=== PATIENT | male | born 1945 | race Caucasian/White ===

== ENCOUNTER 2019-07-29 09:59 | Outpatient (CLI) | payer OTHER, SELFPAY ==
[2019-07-29 10:30] LABS: Basophils # 0.1 10^3/uL (0.0-0.1); Basophils % 0.7 %; Eosinophils # 0.1 10^3/uL (0.0-0.8); Eosinophils % 0.6 %; Hematocrit 47.7 % (42.0-52.0); Hemoglobin 16.1 g/dL (11.7-16.6); Lymphocytes # 10.6 10^3/uL (0.8-4.8); Mean Corpuscular HGB Conc 33.8 g/dL (30.0-36.0); Mean Corpuscular Hemoglobin 30.7 pg (28.0-34.0); Mean Platelet Volume 10.2 fL (7.4-10.4); Monocytes # 0.7 10^3/uL (0.2-0.9); Monocytes % 4.7 %; Neutrophils # 3.4 10^3/uL (1.8-7.7); Neutrophils % 22.8 %; Nucleated Red Blood Cells % 0 %; Platelet Count 229 10^3/cmm (130-400); Red Blood Count 5.24 10^6/uL (4.1-5.3); Red Cell Distribution Width 12.1 % (12.1-15.1)
[2019-07-29 10:59] LABS: Slide Review Slide Review Perform
--- NOTE | 2019-07-29 14:16 | ONC FU_ITS ---
follow up note Patient: Vel Palacios Unit #: [id number]: 1945 Dicatated By: Nara Singh M.D.Date of Visit:Jul 29, 2019 Onc Med Follow-up/Prog Note History of Present Illness: Mr. Vel Palacios , 74-year-old gentleman with long-standing history of leukocytosis/lymphocytosis, on 07/12/2015 he had whole blood flow cytometry which confirmed chronic lymphocytic leukemia. As per patient initially he went to hematology clinic at [facility] in [place] and then he was followed by his PMD in [facility]. And he was told his blood counts has been stable and no treatment needed. And no further workup was offered except observation alone. And his last CBC done on 06/23/2018 showed white blood count 15.5 hemoglobin 16.6 and hematocrit 49.6 platelets 237,000 Denies any peripheral lymphadenopathy denies any night sweats denies any fever chills denies any weight loss Came for follow-up, denies any specific complaints, no fever or chills, no nausea or vomiting, no diarrhea constipation, no abdominal fullness, no peripheral lymphadenopathy, no night sweats, no weight loss. Medications: This patient reports not taking external medications. Allergies: Penicillins Review of Systems: Constitutional - Appetite is good and weight is stable. No fever, chills, hot flashes, or night sweats. Energy level is good, ENMT - No sinus congestion/drainage. No mouth sores. No sore throat or difficulty swallowing, Hematologic/Lymphatic - No abnormal bruising or bleeding, Respiratory - No shortness of breath. No cough. No pleuritic pain or hemoptysis, Cardiovascular - No angina pain. No palpitations, Gastrointestinal - No nausea or vomiting. Positive for heartburn. No diarrhea or constipation. No blood in the stool or black stools, Genitourinary (M) - No dysuria or hematuria. No urinary frequency. No urgency or incontinence, Musculoskeletal - No joint or bone pain, Neurologic - No headache or dizziness. No numbness/paresthesias or other focal neurologic symptoms, Psychiatric - No anxiety or depression. No insomnia. Vital Signs: Performed on Jul 29, 2019 11:51 Height - 74.00 in Weight - 182.6 lbs (LOW) BSA - 2.09 sq.m BMI - 23.44 Temperature - 98.2 F (LOW) Pulse - 65 /min Respiration - 24 /min BP - 138/75 mm(hg) O2 Sat - 94 % (LOW) Pain - 0 Performance Status: 0 - Fully active, able to carry on all predisease activities without restrictions. (ECOG) Physical Examination: ENMT - No oral exudates, ulcers, masses, thrush or mucositis. Oropharynx clear. Tongue normal, Respiratory - Lungs are clear to auscultation without rhonchi or wheezing, Cardiovascular - Regular rate and rhythm of heart, Abdomen - Non-tender, non-distended, hepatosplenomegaly. Good bowel sounds. No guarding or rebound tenderness. No pulsatile masses, Extremities - no edema. Lab/Imaging: Test performed on Jul 29, 2019 10:14 WBC 15.0 10 3/uL RBC 5.24 10^12/L HGB 16.1 g/dL HCT 47.7 % MCV 91.0 fL MCH 30.7 pg MCHC 33.8 g/dL Platelet Count 229 10^9/L RDW 12.1 % MPV 10.2 fL Lymphocytes 10.6 10^9/L Neutrophils 0.1 10 3/uL Monocytes 0.7 10^9/L Eosinophils 0.1 10^9/L Basophils 0.1 10^9/L Neutrophil % 0.6 % Manual Lymphocytes 71.0 % Manual Monocytes 4.7 % Manual Eosinophils 0.6 % Manual Basophils 0.7 % NRBCs 0.0 /100 WBC Impression: Chronic lymphocytic leukemia diagnosed on 07/12/2015 with flow cytometry which showed clonal B-cell detected that coexpress CD5 and surface kappa light chains, partial CD23, dim FMC 7, and are negative for CD10. CD20 expression is moderate to bright. And his baseline white blood cell is around 15,000 with a normal hemoglobin and platelets. Clinical stage 0 Plan: Discussed with patient regarding his labs white blood count 15 hb 16.1 crit 47% platelets 229,000 absolute lymphocyte count 10.6 Clinically, patient is doing well, no B signs symptoms suggestive of disease progression, no peripheral lymphadenopathy, no organomegaly and follow-up CBC shows mild lymphocytosis stable with a normal hemoglobin and platelet counts. We'll continue to monitor and he will return to clinic in 6 months with CBC CMP and LDH Signed By: Nara Singh M.D. <<Signature on File>>
== END 2019-07-29 10:00 | disposition home or self-care (01) ==
LOC: ONCMED 10:04
PROVIDERS: Family Provider Internal Medicine; Visit Provider Internal Medicine Hematology & Oncology
DX: C91.10 Chronic lymphocytic leukemia of B-cell type not having achieved remission (principal)
CPT/HCPCS: 85025; G0463

== ENCOUNTER → 2019-08-13 13:31 | Outpatient (BNVA) | payer OTHER, SELFPAY | PROVIDERS: Family Provider Internal Medicine; Visit Provider Nurse Practitioner | DX: S62.611A Displaced fracture of proximal phalanx of left index finger, initial encounter for closed fracture (principal); S61.432A Puncture wound without foreign body of left hand, initial encounter; W34.00XA Accidental discharge from unspecified firearms or gun, initial encounter | CPT/HCPCS: 73130 ==

== ENCOUNTER 2019-10-09 08:00 | Outpatient (CLI) | payer OTHER, SELFPAY ==
--- NOTE | 2019-10-09 08:45 | USCV_ITS ---
Suzanne Vel Age: 74 Gender: M : 1945 Exam Date: 10/09/2019 08:23 Ordering Phys: Leonard Jain XX Technologist: MARLENE VAUGHN Exam Location: [facility] [place]_ Indication: Rt Carotid Bruit Risk Factors: Previous Vascular Surgery: Right Brachial BP: / Left Brachial BP: / Right Left Velocity (cm/s) Spectral Plaque Velocity (cm/s) Spectral Plaque Syst/Diast Broadening Syst/Diast Broadening 109.90/17.30 Prox CCA 148.80/ 28.70 99.20/ 18.70 Mid CCA 90.40 / 24.30 78.30/ 18.70 Distal CCA 81.60 / 20.90 71.50/ 23.30 Prox ICA 97.00 / 30.90 79.20/ 27.20 Mid ICA 116.90/ 39.70 99.20/ 33.60 Distal ICA 86.00 / 24.30 94.80 ECA 99.20 1.00 ICA/CCA 1.29 Antegrade Vertebral Antegrade 20.80/ 10.70 cm/s 62.10/ 16.30 cm/s Tri Subclavian Tri 201.2 199.7 0 0 FINDINGS Comparison: none available. No significant elevation of systolic or diastolic velocities. Waveforms are normal. Mild atherosclerosis at the bifurcations. Bilateral antegrade vertebral arteries. CONCLUSIONS Bilateral ICA stenosis less than 50%. Mild atherosclerosis. Dr. Roxy Yoon DO (Electronically Signed) Final Date: 09 October 2019 09:17 S
== END 2019-10-09 08:01 | disposition home or self-care (01) ==
PROVIDERS: Family Provider Internal Medicine; PCP Internal Medicine; Visit Provider Internal Medicine
DX: R09.89 Other specified symptoms and signs involving the circulatory and respiratory systems (principal)
CPT/HCPCS: 93880

== ENCOUNTER 2020-01-27 12:02 | Outpatient (CLI) | payer OTHER, SELFPAY ==
[2020-01-27 12:36] LABS: Basophils # 0.1 10^3/uL (0.0-0.1); Basophils % 0.4 %; Eosinophils # 0.1 10^3/uL (0.0-0.8); Eosinophils % 0.6 %; Hematocrit 47.8 % (42.0-52.0); Hemoglobin 15.8 g/dL (11.7-16.6); Lymphocytes # 15.4 10^3/uL (0.8-4.8); Lymphocytes % 75.3 %; Mean Corpuscular HGB Conc 33.1 g/dL (30.0-36.0); Mean Corpuscular Hemoglobin 31.4 pg (28.0-34.0); Mean Platelet Volume 10.4 fL (7.4-10.4); Monocytes # 0.8 10^3/uL (0.2-0.9); Monocytes % 3.8 %; Neutrophils # 4.01 10^3/uL (1.8-7.7); Neutrophils % 19.7 %; Nucleated Red Blood Cells % 0 %; Platelet Count 235 10^3/cmm (130-400); Red Blood Count 5.03 10^6/uL (4.1-5.3); Red Cell Distribution Width 12.7 % (12.1-15.1); White Blood Count 20.5 10^3/uL (4.0-10.0)
[2020-01-27 12:55] LABS: Alanine Aminotransferase 21 U/L (0-41); Albumin Level 4.6 g/dL (3.5-5.2); Alkaline Phosphatase 92 IU/L (40-130); Aspartate Amino Transferase 22 U/L (0-40); Blood Urea Nitrogen 23 mg/dL (8-23); Calcium 9.1 mg/dL (8.5-10.5); Carbon Dioxide 26 mmol/L (22-29); Chloride 107 mmol/L (98-107); Glucose 91 mg/dL (65-115); Osmolality Calculated 288 mOsm/kg (285-295); Sodium 141 mmol/L (136-145); Total Bilirubin 0.7 mg/dL (0.15-1.2); Total Protein 6.6 g/dL (6.6-8.7)
[2020-01-27 13:06] LABS: Anion Gap 12.2 (5-19); Lactate Dehydrogenase 239 U/L (135-225); Potassium 4.2 mmol/L (3.5-5.1)
[2020-01-27 13:16] LABS: Slide Review Slide Review Perform
--- NOTE | 2020-01-27 14:03 | ONC FU_ITS ---
follow up note Patient: Vel Palacios Unit #: [id number]: 1945 Dicatated By: Nara Singh M.D.Date of Visit:Jan 27, 2020 Onc Med Follow-up/Prog Note History of Present Illness: Mr. Vel Palacios , 74-year-old gentleman with long-standing history of leukocytosis/lymphocytosis, on 07/12/2015 he had whole blood flow cytometry which confirmed chronic lymphocytic leukemia. As per patient initially he went to hematology clinic at [facility] in [place] and then he was followed by his PMD in [facility]. And he was told his blood counts has been stable and no treatment needed. And no further workup was offered except observation alone. And his last CBC done on 06/23/2018 showed white blood count 15.5 hemoglobin 16.6 and hematocrit 49.6 platelets 237,000 Denies any peripheral lymphadenopathy denies any night sweats denies any fever chills denies any weight loss Came for follow-up, denies any specific complaints except patient said accidentally he shot himself in his left hand but no serious damage was done. Otherwise denies any night sweats denies any weight loss denies any recurrent fever denies any peripheral lymphadenopathy denies any abdominal fullness. Appetite is good, weight is stable rather gaining. Medications: This patient reports not taking external medications. Allergies: Penicillins Review of Systems: Constitutional - Appetite is good and weight is stable. No fever, chills, hot flashes, or night sweats. Energy level is good, ENMT - No sinus congestion/drainage. No mouth sores. No sore throat or difficulty swallowing, Hematologic/Lymphatic - No abnormal bruising or bleeding, Respiratory - No shortness of breath. No cough. No pleuritic pain or hemoptysis, Cardiovascular - No angina pain. No palpitations, Gastrointestinal - No nausea or vomiting. Positive for heartburn. No diarrhea or constipation. No blood in the stool or black stools, Genitourinary (M) - No dysuria or hematuria. No urinary frequency. No urgency or incontinence, Musculoskeletal - No joint or bone pain, Neurologic - No headache or dizziness. No numbness/paresthesias or other focal neurologic symptoms, Psychiatric - No anxiety or depression. No insomnia. Vital Signs: Performed on Jan 27, 2020 13:42 Height - 74.00 in Weight - 184.4 lbs (HIGH) BSA - 2.10 sq.m BMI - 23.68 Temperature - 98.0 F (LOW) Pulse - 68 /min Respiration - 18 /min BP - 139/78 mm(hg) O2 Sat - 96 % Pain - 0 Performance Status: 0 - Fully active, able to carry on all predisease activities without restrictions. (ECOG) Physical Examination: ENMT - No mouth sores, no thrush, no jaundice, no peripheral lymphadenopathy, Respiratory - Lungs are clear, Cardiovascular - Regular rate and rhythm of heart, Abdomen - Soft, bowel sounds present, no organomegaly, Extremities - No visible edema or rash. Lab/Imaging: Most recent lab results are not available for this patient. Impression: Chronic lymphocytic leukemia diagnosed on 07/12/2015 with flow cytometry which showed clonal B-cell detected that coexpress CD5 and surface kappa light chains, partial CD23, dim FMC 7, and are negative for CD10. CD20 expression is moderate to bright. And his baseline white blood cell is around 15,000 with a normal hemoglobin and platelets. Clinical stage 0 Plan: Discussed with patient regarding his labs white blood count 20.5 hemoglobin 15.8 hematocrit 47.8 platelets 225,000 CMP within normal limit except LDH 239 compared to 169 on February 11, 2019 Clinically, patient is doing well with no signs symptoms suggestive of disease progression, no peripheral lymphadenopathy no organomegaly, follow-up labs shows mild lymphocytosis progression but hemoglobin and platelet count within normal range CMP is also within normal range except mild increase in total LDH. We will continue to monitor and he will return to clinic in 6 months with CBC CMP and LDH. Patient was advised in case he has any B symptoms e.g. night sweats, recurrent fever, peripheral lymphadenopathy or abdominal fullness or dysphagia, he need to call us otherwise return to clinic in 6 months as mentioned earlier. Signed By: Nara Singh M.D. <<Signature on File>>
== END 2020-01-27 12:03 | disposition home or self-care (01) ==
LOC: ONCMED 12:07
PROVIDERS: PCP Internal Medicine; Visit Provider Internal Medicine Hematology & Oncology
DX: C91.10 Chronic lymphocytic leukemia of B-cell type not having achieved remission (principal)
CPT/HCPCS: 36415; 80053; 83615; 85025; G0463

== ENCOUNTER 2020-07-28 11:11 | Outpatient (CLI) | payer OTHER, SELFPAY ==
[2020-07-28 11:38] LABS: Basophils # 0.1 10^3/uL (0.0-0.1); Basophils % 0.5 %; Eosinophils # 0.1 10^3/uL (0.0-0.8); Eosinophils % 0.6 %; Hematocrit 46.8 % (42.0-52.0); Hemoglobin 15.8 g/dL (11.7-16.6); Lymphocytes # 12.8 10^3/uL (0.8-4.8); Lymphocytes % 71.5 %; Mean Corpuscular HGB Conc 33.8 g/dL (30.0-36.0); Mean Corpuscular Volume 94.9 fL (80-94); Mean Platelet Volume 10.3 fL (7.4-10.4); Monocytes # 0.8 10^3/uL (0.2-0.9); Monocytes % 4.6 %; Neutrophils # 4.02 10^3/uL (1.8-7.7); Neutrophils % 22.4 %; Nucleated Red Blood Cells % 0 %; Platelet Count 226 10^3/cmm (130-400); Red Blood Count 4.93 10^6/uL (4.1-5.3); Red Cell Distribution Width 12.3 % (12.1-15.1); White Blood Count 17.9 10^3/uL (4.0-10.0)
[2020-07-28 12:09] LABS: Slide Review Slide Review Perform
[2020-07-28 12:13] LABS: Alanine Aminotransferase 27 U/L (0-41); Albumin Level 4.2 g/dL (3.5-5.2); Alkaline Phosphatase 98 IU/L (40-130); Anion Gap 11.5 (5-19); Aspartate Amino Transferase 18 U/L (0-40); Blood Urea Nitrogen 16 mg/dL (8-23); Calcium 8.9 mg/dL (8.5-10.5); Carbon Dioxide 29 mmol/L (22-29); Chloride 102 mmol/L (98-107); Globulin 2.4 g/dL (1.3-4.6); Glucose 96 mg/dL (65-115); Lactate Dehydrogenase 187 U/L (135-225); Osmolality Calculated 287 mOsm/kg (285-295); Potassium 4.5 mmol/L (3.5-5.1); Sodium 138 mmol/L (136-145); Total Bilirubin 0.4 mg/dL (0.15-1.2); Total Protein 6.6 g/dL (6.6-8.7)
--- NOTE | 2020-07-29 08:04 | ONC FU_ITS ---
follow up note Patient: Vel Palacios Unit #: [id number]: 1945 Dicatated By: Nara Singh M.D.Date of Visit:Jul 28, 2020 Onc Med Follow-up/Prog Note History of Present Illness: Mr. Vel Palacios , 74-year-old gentleman with long-standing history of leukocytosis/lymphocytosis, on 07/12/2015 he had whole blood flow cytometry which confirmed chronic lymphocytic leukemia. As per patient initially he went to hematology clinic at [facility] in [place] and then he was followed by his PMD in [facility]. And he was told his blood counts has been stable and no treatment needed. And no further workup was offered except observation alone. And his last CBC done on 06/23/2018 showed white blood count 15.5 hemoglobin 16.6 and hematocrit 49.6 platelets 237,000 Denies any peripheral lymphadenopathy denies any night sweats denies any fever chills denies any weight loss Came for follow-up, denies any specific complaints, no fever chills, no nausea or vomiting, no diarrhea or constipation, no night sweats, no peripheral lymphadenopathy, no weight loss, no abdominal fullness Medications: This patient reports not taking external medications. Allergies: Penicillins Review of Systems: Review of Systems is not available for this patient. Vital Signs: Performed on Jul 28, 2020 12:57 Height - 74.00 in Weight - 189.8 lbs (HIGH) BSA - 2.13 sq.m BMI - 24.37 Temperature - 98.3 F (LOW) Pulse - 75 /min Respiration - 16 /min BP - 109/69 mm(hg) O2 Sat - 96 % Pain - 0 Performance Status: 0 - Fully active, able to carry on all predisease activities without restrictions. (ECOG) Physical Examination: ENMT - No mouth sores, no thrush, no jaundice, No peripheral lymphadenopathy, Respiratory - Lungs are clear to auscultation, Cardiovascular - Regular rate and rhythm of heart, Abdomen - Soft, bowel sounds present, Extremities - No visible edema or rash. Lab/Imaging: Most recent lab results are not available for this patient. Impression: Chronic lymphocytic leukemia diagnosed on 07/12/2015 with flow cytometry which showed clonal B-cell detected that coexpress CD5 and surface kappa light chains, partial CD23, dim FMC 7, and are negative for CD10. CD20 expression is moderate to bright. And his baseline white blood cell is around 15,000 with a normal hemoglobin and platelets. Clinical stage 0 Plan: Discussed with patient regarding his labs white blood count 17.9 hemoglobin 15.8 medical 46.8 platelets 226,000 CMP within normal limits LDH 187 Clinically, patient doing well with no new signs symptoms or B symptoms suggestive of disease progression. Her lab work-up is also stable rather improvement in total white blood cell with normal hemoglobin and platelet count, electrolytes and LDH. And on exam there is no evidence of peripheral lymphadenopathy or organomegaly We will continue to monitor, patient return to clinic in 6 months with CBC CMP and LDH patient was advised to call us in case he has any B symptoms e.g. drenching night sweats, recurrent fevers or Unintentional weight loss Signed By: Nara Singh M.D. <<Signature on File>>
== END 2020-07-28 11:12 | disposition home or self-care (01) ==
LOC: ONCMED 11:13
PROVIDERS: PCP Internal Medicine; Visit Provider Internal Medicine Hematology & Oncology
DX: C91.10 Chronic lymphocytic leukemia of B-cell type not having achieved remission (principal)
CPT/HCPCS: 36415; 80053; 83615; 85025; G0463

== ENCOUNTER 2021-01-30 12:27 | Outpatient (CLI) | payer OTHER, SELFPAY ==
[2021-01-30 13:05] LABS: Basophils # 0.1 10^3/uL (0.0-0.1); Basophils % 0.4 %; Eosinophils # 0.1 10^3/uL (0.0-0.8); Eosinophils % 0.8 %; Hematocrit 46.2 % (42.0-52.0); Hemoglobin 15.8 g/dL (11.7-16.6); Lymphocytes # 11.2 10^3/uL (0.8-4.8); Lymphocytes % 67.7 %; Mean Corpuscular HGB Conc 34.2 g/dL (30.0-36.0); Mean Corpuscular Volume 93.5 fL (80-94); Mean Platelet Volume 10.4 fL (7.4-10.4); Monocytes # 1.6 10^3/uL (0.2-0.9); Monocytes % 9.6 %; Neutrophils # 3.49 10^3/uL (1.8-7.7); Neutrophils % 21.2 %; Nucleated Red Blood Cells % 0 %; Platelet Count 177 10^3/cmm (130-400); Red Blood Count 4.94 10^6/uL (4.1-5.3); Red Cell Distribution Width 12.2 % (12.1-15.1); White Blood Count 16.5 10^3/uL (4.0-10.0)
[2021-01-30 13:30] LABS: Alanine Aminotransferase 22 U/L (0-41); Albumin Level 4.2 g/dL (3.5-5.2); Alkaline Phosphatase 108 IU/L (40-130); Anion Gap 12.2 (5-19); Aspartate Amino Transferase 18 U/L (0-40); Blood Urea Nitrogen 15 mg/dL (8-23); Calcium 8.3 mg/dL (8.5-10.5); Carbon Dioxide 28 mmol/L (22-29); Chloride 105 mmol/L (98-107); Globulin 2.1 g/dL (1.3-4.6); Glucose 87 mg/dL (65-115); Lactate Dehydrogenase 188 U/L (135-225); Osmolality Calculated 292 mOsm/kg (285-295); Potassium 4.2 mmol/L (3.5-5.1); Sodium 141 mmol/L (136-145); Total Bilirubin 0.7 mg/dL (0.15-1.2); Total Protein 6.3 g/dL (6.6-8.7)
[2021-01-30 13:49] LABS: Slide Review Slide Review Perform
--- NOTE | 2021-01-30 15:24 | ONC FU_ITS ---
follow up note Patient: Vel Palacios Unit #: [id number]: 1945 Dicatated By: Nara Singh M.D.Date of Visit:Jan 30, 2021 Onc Med Follow-up/Prog Note History of Present Illness: Mr. Vel Palacios , 75-year-old gentleman with long-standing history of leukocytosis/lymphocytosis, on 07/12/2015 he had whole blood flow cytometry which confirmed chronic lymphocytic leukemia. As per patient initially he went to hematology clinic at [facility] in [place] and then he was followed by his PMD in [facility]. And he was told his blood counts has been stable and no treatment needed. And no further workup was offered except observation alone. And his last CBC done on 06/23/2018 showed white blood count 15.5 hemoglobin 16.6 and hematocrit 49.6 platelets 237,000 Denies any peripheral lymphadenopathy denies any night sweats denies any fever chills denies any weight loss Came for follow-up, denies any specific complaints, no fever chills, no nausea or vomiting, no diarrhea or constipation, no night sweats, no weight loss, no recurrent fever, no peripheral lymphadenopathy or abdominal fullness Medications: This patient reports not taking external medications. Allergies: Penicillins Review of Systems: Review of Systems is not available for this patient. Vital Signs: Performed on Jan 30, 2021 14:35 Height - 74.00 in Weight - 187.6 lbs (LOW) BSA - 2.11 sq.m BMI - 24.09 Temperature - 98.3 F (LOW) Pulse - 66 /min Respiration - 18 /min BP - 122/76 mm(hg) O2 Sat - 97 % Pain - 0 Performance Status: 0 - Fully active, able to carry on all predisease activities without restrictions. (ECOG) Physical Examination: ENMT - No mouth sores, no thrush, no jaundice, no cervical lymphadenopathy, Respiratory - Lungs are clear to auscultation, Cardiovascular - Regular rate and rhythm of heart, Abdomen - Soft, bowel sounds present, no hepatosplenomegaly, Extremities - No visible edema. Lab/Imaging: Most recent lab results are not available for this patient. Impression: Chronic lymphocytic leukemia diagnosed on 07/12/2015 with flow cytometry which showed clonal B-cell detected that coexpress CD5 and surface kappa light chains, partial CD23, dim FMC 7, and are negative for CD10. CD20 expression is moderate to bright. And his baseline white blood cell is around 15,000 with a normal hemoglobin and platelets. Clinical stage 0 Plan: Discussed with patient regarding his labs white blood count 16.5 compared to 17.9 earlier hemoglobin 15.8 hematocrit 46.2 platelets 177,000 absolute lymphocyte count is 11,200 compared to 12,800 previously CMP within normal limit including LDH Clinically, patient doing well with no B symptoms or peripheral lymphadenopathy or organomegaly, his follow-up labs shows persistent mild leukocytosis/lymphocytosis with normal hemoglobin and platelet count, LDH is also within normal range, will continue to monitor and patient return to clinic in 6 months with CBC CMP and LDH, patient was advised to call us in case he has any symptoms like recurrent fever, any weight loss, any night sweats or any peripheral lymphadenopathy. Signed By: Nara Singh M.D. <<Signature on File>>
== END 2021-01-30 12:28 | disposition home or self-care (01) ==
LOC: ONCMED 12:31
PROVIDERS: PCP Internal Medicine; Visit Provider Internal Medicine Hematology & Oncology
DX: Z08 Encounter for follow-up examination after completed treatment for malignant neoplasm (principal); Z85.6 Personal history of leukemia
CPT/HCPCS: 36415; 80053; 83615; 85025; 99214

== ENCOUNTER 2021-05-17 09:10 | Outpatient (CLI) | payer OTHER, SELFPAY ==
--- NOTE | 2021-05-17 09:23 | USCV_ITS ---
SuzanneVel milian Age: 75 Gender: M : 1945 Exam Date: 05/17/2021 09:34 Ordering Phys: Alice Lange MD Technologist: JAMES [place] [facility] [place]: BRUIT Risk Factors: Previous Vascular Surgery: Right Brachial BP: / Left Brachial BP: / Right Left Velocity (cm/s) Spectral Plaque Velocity (cm/s) Spectral Plaque Syst/Diast Broadening Syst/Diast Broadening 151.20/25.00 Prox CCA 111.90/ 23.10 94.70/ 18.40 Mid CCA 105.10/ 24.80 70.90/ 17.90 Distal CCA 73.50 / 20.50 105.10/32.50 Prox ICA 140.00/ 30.90 86.30/ 32.50 Mid ICA 159.90/ 29.80 101.70/33.30 Distal ICA 137.80/ 30.90 83.70 ECA 82.00 0.91 ICA/CCA 1.52 Retrograde Vertebral Antegrade 69.20/ 9.40 cm/s 90.90/ 14.80 cm/s [place] Subclavian Tri 34.20 78.50 CONCLUSIONS Right ICA stenosis <50%. Mild atheromatous plaque right carotid bulb/ICA. Left ICA stenosis 50-69%. Moderate calcified atheromatous plaque left carotid bulb/ICA. Normal antegrade Doppler flow noted in the left vertebral artery. Retrograde Doppler flow noted in the right vertebral artery with monophasic subclavian suggesting subclavian steal Manny Marroquin MD (Electronically Signed) Final Date: 17 May 2021 13:15 S
== END 2021-05-17 09:11 | disposition home or self-care (01) ==
LOC: US 09:11
PROVIDERS: PCP Family Medicine; Visit Provider Family Medicine
DX: R09.89 Other specified symptoms and signs involving the circulatory and respiratory systems (principal); I65.23 Occlusion and stenosis of bilateral carotid arteries
CPT/HCPCS: 93880

== ENCOUNTER 2021-06-30 20:52 | Emergency (ER) | payer OTHER, MEDICARE, SELFPAY ==
[2021-06-30 21:09] VITALS: BP 147/95; PULSE 77; RESP 16; TEMP 36.5; O2SAT 94
--- NOTE | 2021-06-30 21:53 | W.ED.WOUNDLC ---
HPI - Wound/Laceration General: Chief Complaint: Wound/Laceration Stated Complaint: Tongue Bleeding\Will not stop Time Seen by Provider: 06/30/21 21:16 History of Present Illness: HPI narrative: Patient has laceration back of her tongue on the right side from read to dominant after he had dental work done today. Said as he keeps oozing blood. Onset (ago): hour(s) Location: other (Tongue) Place: home Context: accidental Associated symptoms: Reports no associated symptoms; Denies chills or fever(s) Review of Systems Const: Denies: fever(s) or chills Resp: Denies: dyspnea Skin/Breast: Reports: other (Laceration tongue) Psych: Denies: anxiety PFSH ED PFSH: Medical History (Updated 06/30/21 @ 22:16 by RAJAN Otero) Leucocytosis Surgical History (Updated 08/16/19 @ 22:12 by NIKKY Martinez) No history of previous surgery Family History (Updated 08/16/19 @ 22:13 by NIKKY Martinez) Denies family history of Anesthesia complication Social History (Updated 08/16/19 @ 22:14 by NIKKY Martinez) Smoking and tobacco status: never smoked Alcohol intake: unknown Lives independently: Yes Household members: spouse Housing: House Current gender identity: Male Physical Exam Const: COMMON NORMALS: no acute distress HENMT: THROAT IMAGE: 1. Hematoma developed in front of the laceration. I applied viscous lidocaine and then injected lidocaine with epi to stop the bleeding OTHER: Patient has a laceration right-sided tongue proximally 3/8 inch into long, oozing blood Psych: COMMON NORMALS: mental status grossly normal Course Vital Signs: Vital signs: Vital Signs Temperature 97.7 F 06/30/21 21:09 Pulse Rate 77 06/30/21 21:09 Respiratory Rate 16 06/30/21 21:09 Blood Pressure 147/95 06/30/21 21:09 Pulse Oximetry 94 06/30/21 21:09 MDM - Wound/Laceration MDM Narrative: Medical decision making narrative: Bleeding well controlled after injection was done. No suturing is done. Discharge Plan Discharge Patient Disposition: Home Clinical Impression: Laceration Condition: Stable Prescriptions: No Action No Known Home Medications RF: 0 Discharge Orders: Discharge ED (Routine); Ordered 06/30/21 Ordered By: Cuate Waddell Referrals: Alice Lange MD [Primary Care Provider] - Discharge Diet: Usual diet Discharge Activity: Resume usual activity Activity Restrictions/Additional Instructions: Chewing of food tonight. Follow back up with no significant provement with your primary care return here. Coding Level of Care Code ED Senior Label Specialist for Chg Fwd Exam Expanded Problem Focused
== END 2021-06-30 22:27 | disposition home or self-care (01) ==
PROVIDERS: Emergency Provider Nurse Practitioner Family; PCP Family Medicine
DX: S01.512A Laceration without foreign body of oral cavity, initial encounter (principal); W45.8XXA Other foreign body or object entering through skin, initial encounter; Y92.538 Other ambulatory health services establishments as the place of occurrence of the external cause
CPT/HCPCS: 99283

== ENCOUNTER 2021-08-07 07:59 | Outpatient (CLI) | payer OTHER, SELFPAY ==
[2021-08-07 08:30] LABS: Basophils # 0.1 10^3/uL (0.0-0.1); Basophils % 0.6 %; Eosinophils # 0.2 10^3/uL (0.0-0.8); Hematocrit 46.8 % (42.0-52.0); Hemoglobin 15.9 g/dL (11.7-16.6); Lymphocytes # 10.2 10^3/uL (0.8-4.8); Lymphocytes % 61.6 %; Mean Corpuscular Hemoglobin 32.2 pg (28.0-34.0); Mean Corpuscular Volume 94.7 fl (80-94); Mean Platelet Volume 9.8 fL (7.4-10.4); Monocytes # 2.1 10^3/uL (0.2-0.9); Monocytes % 12.8 %; Neutrophils % 23.7 %; Nucleated Red Blood Cells % 0 %; Platelet Count 214 10^3/cmm (130-400); Red Blood Count 4.94 10^6/uL (4.1-5.3); Red Cell Distribution Width 12.4 % (12.1-15.1); White Blood Count 16.5 10^3/uL (4.0-10.0)
[2021-08-07 09:01] LABS: Alanine Aminotransferase 18 U/L (0-41); Albumin Level 4.3 g/dL (3.5-5.2); Alkaline Phosphatase 100 IU/L (40-130); Anion Gap 14.4 (5-19); Aspartate Amino Transferase 17 U/L (0-40); Blood Urea Nitrogen 17 mg/dL (8-23); Calcium 8.3 mg/dL (8.5-10.5); Carbon Dioxide 28 mmol/L (22-29); Chloride 107 mmol/L (98-107); Globulin 1.7 g/dL (1.3-4.6); Glucose 96 mg/dL (65-115); Lactate Dehydrogenase 166 U/L (135-225); Osmolality Calculated 301 mOsm/kg (285-295); Potassium 4.4 mmol/L (3.5-5.1); Sodium 145 mmol/L (136-145); Total Bilirubin 0.5 mg/dL (0.15-1.2)
[2021-08-07 09:15] LABS: Slide Review Slide Review Perform
--- NOTE | 2021-08-07 10:43 | ONC FU_ITS ---
follow up note Patient: Vel Palacios Unit #: [id number]: 1945 Dicatated By: Nara Singh M.D.Date of Visit:Aug 07, 2021 Onc Med Follow-up/Prog Note History of Present Illness: Mr. Vel Palacios , 76-year-old gentleman with long-standing history of leukocytosis/lymphocytosis, on 07/12/2015 he had whole blood flow cytometry which confirmed chronic lymphocytic leukemia. As per patient initially he went to hematology clinic at [facility] in [place] and then he was followed by his PMD in [facility]. And he was told his blood counts has been stable and no treatment needed. And no further workup was offered except observation alone. And his last CBC done on 06/23/2018 showed white blood count 15.5 hemoglobin 16.6 and hematocrit 49.6 platelets 237,000 Denies any peripheral lymphadenopathy denies any night sweats denies any fever chills denies any weight loss came for follow-up, denies any specific complaints, no fever chills, no nausea or vomiting, no diarrhea or constipation, no night sweats, no recurrent fever, no weight loss, no abdominal fullness, no peripheral lymphadenopathy Medications: This patient reports not taking external medications. Allergies: Penicillins Review of Systems: Review of Systems is not available for this patient. Vital Signs: Vitals are not available for this patient. Performance Status: 0 - Fully active, able to carry on all predisease activities without restrictions. (ECOG) Physical Examination: ENMT - No mouth sores, no thrush, no jaundice, no cervical or axillary lymphadenopathy, Respiratory - Lungs are clear to auscultation, Cardiovascular - Regular rate and rhythm of heart, Abdomen - Soft, bowel sounds present, Extremities - No visible edema. Lab/Imaging: Most recent lab results are not available for this patient. Impression: Chronic lymphocytic leukemia diagnosed on 07/12/2015 with flow cytometry which showed clonal B-cell detected that coexpress CD5 and surface kappa light chains, partial CD23, dim FMC 7, and are negative for CD10. CD20 expression is moderate to bright. And his baseline white blood cell is around 15,000 with a normal hemoglobin and platelets. Clinical stage 0 Plan: Discussed with patient regarding his labs white blood count 16.5, hemoglobin 15.9 hematocrit 46.8 platelets 214,000 absolute lymphocyte count 10,200. CMP within normal limits including LDH Clinically, patient doing well with no new signs symptoms history of disease progression, on exam, no peripheral lymphadenopathy or splenomegaly. Lab work-up showed persistent but stable mild leukocytosis/lymphocytosis with a normal hemoglobin and platelet count, LDH is within normal range. At this point, we will continue to monitor and he will return to clinic in 6 months with CBC CMP and LDH Signed By: Nara Singh M.D. <<Signature on File>>
== END 2021-08-07 08:00 | disposition home or self-care (01) ==
PROVIDERS: PCP Family Medicine; Visit Provider Internal Medicine Hematology & Oncology
DX: C91.10 Chronic lymphocytic leukemia of B-cell type not having achieved remission (principal)
CPT/HCPCS: 36415; 80053; 83615; 85025; 99214

== ENCOUNTER 2022-03-16 09:56 | Oncology outpatient (recurring) (ONCR) | payer OTHER, SELFPAY ==
[2022-03-16 10:13] LABS: Hematocrit 47.8 % (42.0-52.0); Hemoglobin 16.3 g/dL (11.7-16.6); Mean Corpuscular HGB Conc 34.1 g/dL (30.0-36.0); Mean Corpuscular Hemoglobin 31.8 pg (28.0-34.0); Mean Corpuscular Volume 93.4 fl (80-94); Mean Platelet Volume 9.6 fL (7.4-10.4); Platelet Count 230 10^3/cmm (130-400); Red Blood Count 5.12 10^6/uL (4.1-5.3); Red Cell Distribution Width 12.7 % (12.1-15.1); White Blood Count 15.7 10^3/uL (4.0-10.0)
[2022-03-16 10:32] LABS: Alanine Aminotransferase 24 U/L (0-41); Albumin Level 4.7 g/dL (3.5-5.2); Alkaline Phosphatase 105 U/L (40-130); Anion Gap 13.2 (5-19); Aspartate Amino Transferase 20 U/L (0-40); Blood Urea Nitrogen 18 mg/dL (8-23); Calcium 8.9 mg/dL (8.5-10.5); Carbon Dioxide 27 mmol/L (22-29); Chloride 106 mmol/L (98-107); Globulin 2.3 g/dL (1.3-4.6); Glucose 92 mg/dL (65-115); Lactate Dehydrogenase 209 U/L (135-225); Osmolality Calculated 294 mOsm/kg (285-295); Potassium 5.2 mmol/L (3.5-5.1); Sodium 141 mmol/L (136-145); Total Bilirubin 0.6 mg/dL (0.15-1.2)
[2022-03-16 10:58] LABS: Absolute Eosinophils 0.1 10^3/cmm (0.0-0.7); Absolute Segmented Neutrophil 3.9 10/cmm (1.6-7.1); Eosinophils 1 %; Lymphocytes 17 %; Lymphocytes Absolute 11.3 10^3/cmm (1.2-3.4); Segmented Neutrophils 25 %; Total Cells Counted 100 (0-100)
[2022-03-16 11:04] LABS: Blastocytes 2 % (0-0)
[2022-03-16 11:06] LABS: Absolute Neutrophil 3.9 10^3/cmm (1.4-6.5); Platelet Estimate Normal (Normal)
== END 2022-04-13 23:59 | disposition home or self-care (01) ==
PROVIDERS: PCP Family Medicine; Visit Provider Internal Medicine Hematology & Oncology
DX: D72.829 Elevated white blood cell count, unspecified (principal); C91.10 Chronic lymphocytic leukemia of B-cell type not having achieved remission; Z87.891 Personal history of nicotine dependence
CPT/HCPCS: 36415; 80053; 83615; 85007; 85025; 99214

== ENCOUNTER 2022-04-24 13:01 | Oncology outpatient (recurring) (ONCR) | payer OTHER, SELFPAY ==
[2022-04-24 13:17] LABS: Hematocrit 46.2 % (42.0-52.0); Hemoglobin 16.1 g/dL (11.7-16.6); Mean Corpuscular HGB Conc 34.8 g/dL (30.0-36.0); Mean Corpuscular Hemoglobin 32.2 pg (28.0-34.0); Mean Corpuscular Volume 92.4 fl (80-94); Mean Platelet Volume 9.6 fL (7.4-10.4); Platelet Count 227 10^3/cmm (130-400); Red Cell Distribution Width 12.6 % (12.1-15.1); White Blood Count 18.2 10^3/uL (4.0-10.0)
[2022-04-24 14:19] LABS: Absolute Segmented Neutrophil 3.8 10/cmm (1.6-7.1); Eosinophils 0 %; Lymphocytes 29 %; Monocytes Absolute 0.4 10^3/cmm (0.1-0.6); Segmented Neutrophils 21 %; Slide Review Slide Review Perform; Total Cells Counted 100 (0-100)
[2022-04-24 14:20] LABS: Absolute Neutrophil 3.8 10^3/cmm (1.4-6.5); Platelet Estimate Normal (Normal)
== END 2022-05-14 23:59 | disposition home or self-care (01) ==
PROVIDERS: PCP Family Medicine; Visit Provider Internal Medicine Hematology & Oncology
DX: C91.10 Chronic lymphocytic leukemia of B-cell type not having achieved remission; Z87.891 Personal history of nicotine dependence
CPT/HCPCS: 80503; 85007; 85025; 99213; 99214

== ENCOUNTER 2022-08-17 10:12 | Oncology outpatient (recurring) (ONCR) | payer OTHER, SELFPAY ==
[2022-08-17 10:36] LABS: Hematocrit 50.6 % (42.0-52.0); Hemoglobin 17.2 g/dL (11.7-16.6); Mean Corpuscular Hemoglobin 31.4 pg (28.0-34.0); Mean Corpuscular Volume 92.3 fl (80-94); Mean Platelet Volume 10.1 fL (7.4-10.4); Platelet Count 243 10^3/cmm (130-400); Red Blood Count 5.48 10^6/uL (4.1-5.3); Red Cell Distribution Width 12.2 % (12.1-15.1); White Blood Count 15.8 10^3/uL (4.0-10.0)
[2022-08-17 10:54] LABS: Alanine Aminotransferase 14 U/L (0-41); Albumin Level 4.7 g/dL (3.5-5.2); Alkaline Phosphatase 103 U/L (40-130); Anion Gap 15.7 (5-19); Aspartate Amino Transferase 17 U/L (0-40); Blood Urea Nitrogen 16 mg/dL (8-23); Carbon Dioxide 26 mmol/L (22-29); Chloride 104 mmol/L (98-107); Globulin 2.2 g/dL (1.3-4.6); Glucose 97 mg/dL (65-115); Lactate Dehydrogenase 193 U/L (135-225); Osmolality Calculated 293 mOsm/kg (285-295); Potassium 4.7 mmol/L (3.5-5.1); Sodium 141 mmol/L (136-145); Total Bilirubin 0.6 mg/dL (0.15-1.2); Total Protein 6.9 g/dL (6.6-8.7)
[2022-08-17 11:20] LABS: Absolute Neutrophil 4.3 10^3/cmm (1.4-6.5); Absolute Segmented Neutrophil 3.8 10/cmm (1.6-7.1); Band Neutrophils Absolute 0.5 10^3/cmm (0.0-1.2); Lymphocytes 18 %; Lymphocytes Absolute 10.4 10^3/cmm (1.2-3.4); Monocytes Absolute 1.1 10^3/cmm (0.1-0.6); Platelet Estimate Normal (Normal); Segmented Neutrophils 24 %; Slide Review Slide Review Perform; Total Cells Counted 100 (0-100)
== END 2022-09-11 23:59 | disposition home or self-care (01) ==
PROVIDERS: PCP Family Medicine; Visit Provider Internal Medicine Hematology & Oncology
DX: C91.10 Chronic lymphocytic leukemia of B-cell type not having achieved remission (principal); Z87.891 Personal history of nicotine dependence
CPT/HCPCS: 36415; 80053; 83615; 85007; 85025; 99214

== ENCOUNTER 2023-02-14 12:41 | Oncology outpatient (recurring) (ONCR) | payer OTHER, SELFPAY ==
[2023-02-14 13:13] VITALS: BP 160/72; PULSE 69; RESP 17; TEMP 36.7; O2SAT 94
[2023-02-14 13:32] LABS: Hematocrit 46.4 % (42.0-52.0); Hemoglobin 16.4 g/dL (11.7-16.6); Mean Corpuscular HGB Conc 35.3 g/dL (30.0-36.0); Mean Corpuscular Volume 90.4 fl (80-94); Mean Platelet Volume 10.2 fL (7.4-10.4); Platelet Count 227 10^3/cmm (130-400); Red Blood Count 5.13 10^6/uL (4.1-5.3); Red Cell Distribution Width 12.3 % (12.1-15.1); White Blood Count 19.3 10^3/uL (4.0-10.0)
[2023-02-14 13:57] LABS: Alanine Aminotransferase 12 U/L (0-41); Albumin Level 4.2 g/dL (3.5-5.2); Alkaline Phosphatase 103 U/L (40-130); Aspartate Amino Transferase 16 U/L (0-40); Blood Urea Nitrogen 15 mg/dL (8-23); Calcium 8.5 mg/dL (8.5-10.5); Carbon Dioxide 24 mmol/L (22-29); Chloride 103 mmol/L (98-107); Globulin 2.2 g/dL (1.3-4.6); Glucose 86 mg/dL (65-115); Osmolality Calculated 286 mOsm/kg (285-295); Sodium 138 mmol/L (136-145); Total Bilirubin 0.4 mg/dL (0.15-1.2); Total Protein 6.4 g/dL (6.6-8.7)
[2023-02-14 14:02] LABS: Anion Gap 15.6 (5-19); Lactate Dehydrogenase 211 U/L (135-225); Potassium 4.6 mmol/L (3.5-5.1)
[2023-02-14 14:08] LABS: Slide Review Slide Review Perform
[2023-02-14 14:09] LABS: Absolute Eosinophils 0.1 10^3/cmm (0.0-0.7); Absolute Neutrophil 3.9 10^3/cmm (1.4-6.5); Absolute Segmented Neutrophil 3.9 10/cmm (1.6-7.1); Eosinophils 1 %; Lymphocytes 26 %; Lymphocytes Absolute 14.7 10^3/cmm (1.2-3.4); Monocytes Absolute 0.4 10^3/cmm (0.1-0.6); Platelet Estimate Normal (Normal); Segmented Neutrophils 20 %; Smudge Cells 2+; Total Cells Counted 100 (0-100)
== END 2023-03-14 23:59 | disposition home or self-care (01) ==
PROVIDERS: Nurse Practitioner Family; PCP Family Medicine; Visit Provider Internal Medicine Hematology & Oncology
DX: C91.10 Chronic lymphocytic leukemia of B-cell type not having achieved remission (principal); Z87.891 Personal history of nicotine dependence
CPT/HCPCS: 36415; 80053; 83615; 85007; 85025; 99214

== ENCOUNTER → 2023-03-07 12:27 | Outpatient (BNVA) | payer OTHER, SELFPAY | PROVIDERS: PCP Family Medicine; Visit Provider Dermatology | DX: D48.5 Neoplasm of uncertain behavior of skin (principal); L82.1 Other seborrheic keratosis; L72.0 Epidermal cyst; D18.01 Hemangioma of skin and subcutaneous tissue; L81.4 Other melanin hyperpigmentation | CPT/HCPCS: 11102; 99203 ==

== ENCOUNTER → 2023-04-03 09:45 | Outpatient (BNVA) | payer OTHER, SELFPAY | PROVIDERS: PCP Family Medicine; Visit Provider Dermatology | DX: C44.519 Basal cell carcinoma of skin of other part of trunk (principal) | CPT/HCPCS: 11603; 12032 ==

== ENCOUNTER 2023-08-15 12:43 | Oncology outpatient (recurring) (ONCR) | payer OTHER, SELFPAY ==
[2023-08-15 13:04] LABS: Basophils # 0.1 10^3/uL (0.0-0.1); Basophils % 0.5 %; Eosinophils # 0.1 10^3/uL (0.0-0.8); Eosinophils % 0.7 %; Hematocrit 49.9 % (37-53); Lymphocytes # 11.1 10^3/uL (0.8-4.8); Lymphocytes % 71.3 %; Mean Corpuscular HGB Conc 34.3 g/dL (30-55); Mean Corpuscular Hemoglobin 32.1 pg (27-33); Mean Corpuscular Volume 93.6 fl (82-101); Mean Platelet Volume 10.2 fL (7.4-10.4); Monocytes # 0.7 10^3/uL (0.2-0.9); Monocytes % 4.5 %; Neutrophils # 3.55 10^3/uL (1.8-7.7); Neutrophils % 22.9 %; Nucleated Red Blood Cells % 0 %; Platelet Count 226 10^3/cmm (157-399); Red Blood Count 5.33 10^6/uL (3.85-5.65); Red Cell Distribution Width 12.2 % (12.1-15.1)
[2023-08-15 13:21] LABS: Alanine Aminotransferase 16 U/L (0-41); Albumin Level 4.2 g/dL (3.5-5.2); Alkaline Phosphatase 108 U/L (40-130); Anion Gap 14.7 (5-19); Aspartate Amino Transferase 18 U/L (0-40); Blood Urea Nitrogen 16 mg/dL (8-23); Calcium 8.9 mg/dL (8.5-10.5); Carbon Dioxide 24 mmol/L (22-29); Chloride 103 mmol/L (98-107); Globulin 2.4 g/dL (1.3-4.6); Glucose 95 mg/dL (65-115); Osmolality Calculated 285 mOsm/kg (285-295); Potassium 4.7 mmol/L (3.5-5.1); Sodium 137 mmol/L (136-145); Total Bilirubin 0.4 mg/dL (0.15-1.2); Total Protein 6.6 g/dL (6.6-8.7)
[2023-08-15 13:37] LABS: Lactate Dehydrogenase 188 U/L (135-225)
[2023-08-15 14:06] LABS: Slide Review Slide Review Perform
== END 2023-09-12 23:59 | disposition home or self-care (01) ==
PROVIDERS: Nurse Practitioner Family; PCP Family Medicine; Visit Provider Internal Medicine Medical Oncology
DX: C91.10 Chronic lymphocytic leukemia of B-cell type not having achieved remission (principal); Z87.891 Personal history of nicotine dependence
CPT/HCPCS: 36415; 80053; 83615; 85025; 99214

== ENCOUNTER → 2023-10-02 10:36 | Outpatient (BNVA) | payer OTHER, SELFPAY | PROVIDERS: PCP Family Medicine; Visit Provider Nurse Practitioner Family | DX: L57.0 Actinic keratosis (principal); L57.8 Other skin changes due to chronic exposure to nonionizing radiation; D22.5 Melanocytic nevi of trunk; L81.4 Other melanin hyperpigmentation; Z85.828 Personal history of other malignant neoplasm of skin | CPT/HCPCS: 17000; 99213 ==

== ENCOUNTER 2024-03-04 12:12 | Oncology outpatient (recurring) (ONCR) | payer OTHER, SELFPAY ==
[2024-03-04 13:00] LABS: Hematocrit 45.5 % (37-53); Mean Corpuscular HGB Conc 34.1 g/dL (30-55); Mean Corpuscular Hemoglobin 31.6 pg (27-33); Mean Corpuscular Volume 92.7 fl (82-101); Mean Platelet Volume 10.1 fL (7.4-10.4); Platelet Count 248 10^3/cmm (157-399); Red Blood Count 4.91 10^6/uL (3.85-5.65); Red Cell Distribution Width 12.9 % (12.1-15.1); White Blood Count 19.61 10^3/uL (3.29-11.43)
[2024-03-04 13:27] LABS: Alanine Aminotransferase 17 U/L (0-41); Albumin Level 3.8 g/dL (3.5-5.2); Alkaline Phosphatase 114 U/L (40-130); Anion Gap 15.2 (5-19); Aspartate Amino Transferase 17 U/L (0-40); Blood Urea Nitrogen 15 mg/dL (8-23); Calcium 8.1 mg/dL (8.5-10.5); Carbon Dioxide 22 mmol/L (22-29); Chloride 108 mmol/L (98-107); Globulin 2.3 g/dL (1.3-4.6); Glucose 107 mg/dL (65-115); Lactate Dehydrogenase 191 U/L (135-225); Osmolality Calculated 293 mOsm/kg (285-295); Potassium 4.2 mmol/L (3.5-5.1); Sodium 141 mmol/L (136-145); Total Bilirubin 0.3 mg/dL (0.15-1.2); Total Protein 6.1 g/dL (6.6-8.7)
[2024-03-04 13:54] LABS: Slide Review Slide Review Perform
[2024-03-04 13:55] LABS: Absolute Neutrophil 7.1 10^3/cmm (1.4-6.5); Absolute Segmented Neutrophil 7.1 10/cmm (1.6-7.1); Eosinophils 0 %; Lymphocytes 20 %; Lymphocytes Absolute 11.8 10^3/cmm (1.2-3.4); Monocytes Absolute 0.8 10^3/cmm (0.1-0.6); Platelet Estimate Normal (Normal); Segmented Neutrophils 36 %; Total Cells Counted 100 (0-100)
== END 2024-03-14 23:55 | disposition home or self-care (01) ==
PROVIDERS: Nurse Practitioner Family; PCP Family Medicine; Visit Provider Internal Medicine Medical Oncology
DX: C91.10 Chronic lymphocytic leukemia of B-cell type not having achieved remission (principal); Z87.891 Personal history of nicotine dependence
CPT/HCPCS: 36415; 80053; 83615; 85007; 85025; 99214

== ENCOUNTER → 2024-03-09 12:52 | Outpatient (BNVA) | payer OTHER, SELFPAY | PROVIDERS: PCP Family Medicine; Visit Provider Nurse Practitioner Family | DX: R60.0 Localized edema (principal); L57.0 Actinic keratosis; T63.461A Toxic effect of venom of wasps, accidental (unintentional), initial encounter; X58.XXXA Exposure to other specified factors, initial encounter; L72.0 Epidermal cyst; D22.5 Melanocytic nevi of trunk; L81.4 Other melanin hyperpigmentation; Z85.828 Personal history of other malignant neoplasm of skin | CPT/HCPCS: 17000; 99213 ==

== ENCOUNTER 2024-08-11 13:01 | Oncology outpatient (recurring) (ONCR) | payer OTHER, SELFPAY ==
[2024-08-11 13:43] LABS: Hematocrit 44.2 % (37-53); Mean Corpuscular HGB Conc 34.4 g/dL (30-55); Mean Corpuscular Hemoglobin 31.4 pg (27-33); Mean Corpuscular Volume 91.3 fl (82-101); Platelet Count 217 10^3/cmm (157-399); Red Blood Count 4.84 10^6/uL (3.85-5.65); Red Cell Distribution Width 12.6 % (12.1-15.1); White Blood Count 20.26 10^3/uL (3.29-11.43)
[2024-08-11 13:58] LABS: Alanine Aminotransferase 17 U/L (0-41); Albumin Level 4.1 g/dL (3.5-5.2); Alkaline Phosphatase 95 U/L (40-130); Anion Gap 15.2 (5-19); Aspartate Amino Transferase 18 U/L (0-40); Blood Urea Nitrogen 17 mg/dL (8-23); Calcium 8.5 mg/dL (8.5-10.5); Carbon Dioxide 25 mmol/L (22-29); Chloride 102 mmol/L (98-107); Globulin 1.9 g/dL (1.3-4.6); Glucose 127 mg/dL (65-115); Lactate Dehydrogenase 162 U/L (135-225); Osmolality Calculated 289 mOsm/kg (285-295); Potassium 4.2 mmol/L (3.5-5.1); Sodium 138 mmol/L (136-145); Total Bilirubin 0.4 mg/dL (0.15-1.2)
[2024-08-11 14:27] LABS: Absolute Eosinophils 0.2 10^3/cmm (0.0-0.7); Absolute Neutrophil 4.9 10^3/cmm (1.4-6.5); Absolute Segmented Neutrophil 4.7 10/cmm (1.6-7.1); Band Neutrophils Absolute 0.2 10^3/cmm (0.0-1.2); Eosinophils 1 %; Lymphocytes 8 %; Lymphocytes Absolute 14.6 10^3/cmm (1.2-3.4); Monocytes Absolute 0.6 10^3/cmm (0.1-0.6); Platelet Estimate Normal (Normal); Segmented Neutrophils 23 %; Slide Review Slide Review Perform; Total Cells Counted 100 (0-100)
== END 2024-08-14 23:59 | disposition home or self-care (01) ==
PROVIDERS: Nurse Practitioner Family; PCP Family Medicine; Visit Provider Internal Medicine Medical Oncology
DX: Z08 Encounter for follow-up examination after completed treatment for malignant neoplasm (principal); Z85.6 Personal history of leukemia; Z87.891 Personal history of nicotine dependence
CPT/HCPCS: 36415; 80053; 83615; 85007; 85025; 99213

== ENCOUNTER 2025-02-09 12:54 | Oncology outpatient (recurring) (ONCR) | payer OTHER, SELFPAY ==
[2025-02-09 13:13] LABS: Hematocrit 45.0 % (37-53); Hemoglobin 15.60 g/dL (11.27-16.99); Mean Corpuscular HGB Conc 34.7 g/dL (30-55); Mean Corpuscular Hemoglobin 31.5 pg (27-33); Mean Corpuscular Volume 90.7 fl (82-101); Nucleated Red Blood Cells % 0 %; Platelet Count 204 10^3/cmm (157-399); Red Blood Count 4.96 10^6/uL (3.85-5.65); White Blood Count 20.20 10^3/uL (3.29-11.43)
[2025-02-09 13:34] LABS: Alanine Aminotransferase 18 U/L (0-41); Albumin Level 4.3 g/dL (3.5-5.2); Alkaline Phosphatase 97 U/L (40-130); Anion Gap 16.1 (5-19); Aspartate Amino Transferase 17 U/L (0-40); Blood Urea Nitrogen 20 mg/dL (8-23); Calcium 8.5 mg/dL (8.5-10.5); Carbon Dioxide 24 mmol/L (22-29); Chloride 106 mmol/L (98-107); Creatinine Clr Calc Pharmacy 60.4687; Globulin 2.1 g/dL (1.3-4.6); Glucose 93 mg/dL (65-115); Osmolality Calculated 294 mOsm/kg (285-295); Potassium 5.1 mmol/L (3.5-5.1); Sodium 141 mmol/L (136-145); Total Protein 6.4 g/dL (6.6-8.7)
[2025-02-09 13:36] LABS: Slide Review Slide Review Perform
== END 2025-02-11 23:59 | disposition home or self-care (01) ==
PROVIDERS: Nurse Practitioner Family; PCP Family Medicine; Visit Provider Internal Medicine Medical Oncology
DX: C91.10 Chronic lymphocytic leukemia of B-cell type not having achieved remission (principal); Z87.891 Personal history of nicotine dependence
CPT/HCPCS: 36415; 80053; 83615; 85025; 99214

== ENCOUNTER → 2025-03-08 07:52 | Outpatient (BNVA) | payer OTHER, SELFPAY | PROVIDERS: PCP Family Medicine; Visit Provider Nurse Practitioner Family | DX: L72.0 Epidermal cyst (principal); D18.01 Hemangioma of skin and subcutaneous tissue; L81.4 Other melanin hyperpigmentation; Z08 Encounter for follow-up examination after completed treatment for malignant neoplasm; Z85.828 Personal history of other malignant neoplasm of skin | CPT/HCPCS: 17000; 17110; 99213 ==

== ENCOUNTER 2025-05-12 13:45 | Oncology outpatient (recurring) (ONCR) | payer OTHER, SELFPAY ==
[2025-05-05 11:03] LABS: Hematocrit 48.2 % (37-53); Hemoglobin 16.90 g/dL (11.27-16.99); Mean Corpuscular HGB Conc 35.1 g/dL (30-55); Mean Corpuscular Hemoglobin 31.6 pg (27-33); Mean Corpuscular Volume 90.1 fl (82-101); Nucleated Red Blood Cells % 0 %; Platelet Count 242 10^3/cmm (157-399); Red Blood Count 5.35 10^6/uL (3.85-5.65); White Blood Count 14.65 10^3/uL (3.29-11.43)
[2025-05-05 11:09] LABS: Alanine Aminotransferase 17 U/L (0-41); Albumin Level 4.6 g/dL (3.5-5.2); Alkaline Phosphatase 112 U/L (40-130); Aspartate Amino Transferase 19 U/L (0-40); Blood Urea Nitrogen 17 mg/dL (8-23); Calcium 9.0 mg/dL (8.5-10.5); Carbon Dioxide 23 mmol/L (22-29); Chloride 103 mmol/L (98-107); Creatinine Clr Calc Pharmacy 61.1197; Globulin 2.4 g/dL (1.3-4.6); Glucose 125 mg/dL (65-115); Osmolality Calculated 291 mOsm/kg (285-295); Sodium 139 mmol/L (136-145); Total Protein 7.0 g/dL (6.6-8.7); Uric Acid 6.6 mg/dL (3.4-7.0)
[2025-05-05 11:11] LABS: Anion Gap 17.7 (5-19); Potassium 4.7 mmol/L (3.5-5.1)
[2025-05-05 12:07] LABS: Slide Review Slide Review Perform
[2025-05-06 05:45] LABS: PROTEIN, TOTAL 6.6 g/dL (6.1-8.1)
[2025-05-06 19:05] LABS: ALPHA 1 GLOBULIN 0.2 g/dL (0.2-0.3); ALPHA 2 GLOBULIN 0.7 g/dL (0.5-0.9); BETA 1 GLOBULIN 0.3 g/dL (0.4-0.6); BETA 2 GLOBULIN 0.3 g/dL (0.2-0.5)
[2025-05-12] MEDS: iohexol 350 mg/mL 500 mL Btl (per mL) PO (13:15)
--- NOTE | 2025-05-12 13:45 | CTR_ITS ---
PROCEDURE INFORMATION: Exam: CT Chest With Contrast; Diagnostic Exam date and time: 05/12/2025 1:49 PM Age: 79 years old Clinical indication: Condition or disease; Other: Cll TECHNIQUE: Imaging protocol: Diagnostic computed tomography of the chest with contrast. Radiation optimization: All CT scans at this facility use at least one of these dose optimization techniques: automated exposure control; mA and/or kV adjustment per patient size (includes targeted exams where dose is matched to clinical indication); or iterative reconstruction. Contrast material: OMNI 350; Contrast volume: 100 ml; Contrast route: INTRAVENOUS (IV); COMPARISON: No relevant prior studies available. RADIATION DOSE METRICS: Total DLP (mGy-cm): 819.6 FINDINGS: Lungs: Bilateral posteroinferior lower lobe opacities located peripherally consistent with atelectasis. This appears asymmetric more marked on the right and underlying pneumonia can not be excluded. Pleural spaces: Unremarkable. No pneumothorax. No pleural effusion. Heart: Heart size normal. No pericardial effusion.. Lymph nodes: Some small and mildly enlarged mediastinal lymph nodes. Hilar lymph nodes in axillary lymph nodes. Largest mediastinal lymph node measures 1.4 cm in greatest diameter is seen in the left paratracheal space slice image 14 series 4. Largest hilar lymph node is on the right measuring 1.56 cm in greatest diameter. Multiple bilateral axillary lymph nodes showing increase in size. Largest on the right measures 1.1 x 1.56 cm in diameter. Largest on the left measures 1.6 x 1.8 cm in diameter. This should be correlated clinically. They may be reactive , can not rule out lymphoma or other lymphoproliferative disease, early metastatic involvement. Vasculature: Mild ectasia ascending thoracic aorta. Mild calcification aortic arch. No aortic aneurysm. Bones/joints: Degenerative changes, changes of dish, Schmorl's nodes deformities.. Soft tissues: Mild bilateral gynecomastia. PROCEDURE INFORMATION: Exam: CT Abdomen And Pelvis With Contrast Exam date and time: 05/12/2025 1:49 PM Age: 79 years old Clinical indication: Condition or disease; Other: Cll TECHNIQUE: Imaging protocol: Computed tomography of the abdomen and pelvis with contrast. Radiation optimization: All CT scans at this facility use at least one of these dose optimization techniques: automated exposure control; mA and/or kV adjustment per patient size (includes targeted exams where dose is matched to clinical indication); or iterative reconstruction. Contrast material: OMNI 350; Contrast volume: 100 ml; Contrast route: INTRAVENOUS (IV); COMPARISON: No relevant prior studies available. RADIATION DOSE METRICS: Total DLP (mGy-cm): 819.6 FINDINGS: Liver: Low-density 4.7 mm lesion inferior right lobe of the liver. This most likely a small cyst. No follow-up imaging recommended.In a low-risk patient, this is most likely to be benign and no further follow-up is recommended. In a high-risk patient, follow-up MRI in 3-6 months is recommended (or earlier if warranted by the patient's specific clinical circumstances). (Reference: Catherine) References: Catherine MUNGUIA, et al. Management of Incidental Liver Lesions on CT: A White Paper of the ACR Incidental Findings Committee. J Am Jamil Radiol. 2017;14(11):2865-6655. Gallbladder and biliary ducts: Normal-size. No wall thickening. No calcified stones. Small opacities at the neck probably represent folds or the cystic duct folded upon itself. No ductal dilation. Pancreas: Normal. No ductal dilation. Spleen: Normal. No splenomegaly. Adrenal glands: Normal. No mass. Kidneys and ureters: 1.27 cm simple cyst posterior mid left kidney. No follow-up imaging recommended. No calculi. No hydronephrosis.Benign simple renal cyst requiring no follow-up. (Reference: Shamar) References: Shamar ROBINS, et al. Bosniak Classification of Cystic Renal Masses, Version 2019: An Update Proposal and Needs Assessment. Radiology. 2019;292(2):475-488. Stomach and bowel: Small hiatal hernia containing small amount of contrast. Jejunum and unremarkable. Segments of mild wall thickening of the sigmoid colon may be due to incomplete distension. No significant surrounding stranding in these areas. Correlate with symptoms. Appendix: No evidence of appendicitis. Intraperitoneal space: Unremarkable. No free air. No significant fluid collection. Vasculature: Mild atherosclerosis. No abdominal aortic aneurysm. Lymph nodes: Enlarged mesenteric, para-aortic, pericaval, iliac lymph nodes. Largest right pericaval lymph node measures 8.3 x 2.3 cm in diameter slice image 57 series 5. A right common iliac lymph node measures 1.4 x 1.86 cm in diameter image 69 series 5. Right internal iliac lymph node measures 1.1 x 1.9 cm in diameter slice 81 series 5. Right external iliac lymph node measures 1.65 x 1.8 cm in diameter image 91 series 5. Left para-aortic lymph node measures up to 1 x 1.7 cm in diameters image 47 series 5. Left common iliac lymph node measures up to 1.35 x 2.2 cm in diameter slice 61 series 5. 1.1 x 1.9 cm lymph node bifurcation of the left internal and external iliac vein. 2.2 x 2.5 cm distal left external iliac lymph node. Mesenteric lymph nodes measure up to 1.1 x 1.87 cm in diameter seen on slice 53 series 5. Considerations reactive adenopathy, lymphoma or other lymphoproliferative disease. Urinary bladder: Mildly distended. Reproductive: Heterogeneous mildly enlarged prostate with some lobulation of the outlines and calcification. Bones/joints: Degenerative changes most marked lower facet joints. Mild anterolisthesis of L4 with respect L5 on a degenerative basis. Schmorl's nodes deformities.. Soft tissues: Unremarkable. CT/CT chest abdpel w/*[id number] IMPRESSION: 1. Opacities posterior inferior lower lobes. This may represent some dependent atelectasis. Underlying pneumonia particularly on the right can not be excluded. 2. Small and mildly enlarged hilar lymph nodes, mediastinal lymph nodes and bilateral axillary lymph nodes. Considerations are metastatic disease, lymphoma or other lymphoproliferative disease. Can not entirely rule out reactive adenopathy. IMPRESSION: 1. Enlarged mesenteric, celiac, periaortic and pericaval, iliac lymph nodes. Correlate for lymphoma or other lymphoproliferative process, metastatic disease. 2. Small hiatal hernia. 3. Some segments of mild wall thickening of the sigmoid colon may be due to incomplete distension. Correlate with symptoms. 4. Heterogeneous mildly enlarged prostate with some lobulation and with calcification.
[2025-05-12] MEDS: iohexol 350 mg/mL 500 mL Btl (per mL) IV (14:03)
[2025-05-12 16:05] LABS: Chromogranin A LC/MS/MS 70 ng/mL (ADULTS: <311)
[2025-05-13 13:09] LABS: CLL Prognostic Panel (BBPL) See Report
[2025-05-15 13:44] LABS: IGVH Status UNMUTATED
== END 2025-05-14 23:59 | disposition home or self-care (01) ==
LOC: RAD 05-13 → ONCMED 05-13 09:39
PROVIDERS: Internal Medicine; PCP Family Medicine; Visit Provider Internal Medicine Medical Oncology
DX: C91.10 Chronic lymphocytic leukemia of B-cell type not having achieved remission (principal); Z87.891 Personal history of nicotine dependence
CPT/HCPCS: 36415; 71260; 74177; 80053; 81263; 82232; 82784; 83615; 84155; 84165; 84550; 85025; 85651; 86316; 86334; 88185; 88264; 88271; 88367; 88374; 99213

== ENCOUNTER 2025-06-02 12:16 | Oncology outpatient (recurring) (ONCR) | payer OTHER, SELFPAY | END 2025-06-13 23:59 | disposition home or self-care (01) | PROVIDERS: PCP Family Medicine; Visit Provider Internal Medicine Medical Oncology | DX: C91.10 Chronic lymphocytic leukemia of B-cell type not having achieved remission (principal); Z87.891 Personal history of nicotine dependence; R91.8 Other nonspecific abnormal finding of lung field; R59.0 Localized enlarged lymph nodes; K44.9 Diaphragmatic hernia without obstruction or gangrene; K63.89 Other specified diseases of intestine; N40.0 Benign prostatic hyperplasia without lower urinary tract symptoms; N42.89 Other specified disorders of prostate; I77.810 Thoracic aortic ectasia; I70.0 Atherosclerosis of aorta; R93.7 Abnormal findings on diagnostic imaging of other parts of musculoskeletal system; N62 Hypertrophy of breast; K76.89 Other specified diseases of liver; K82.8 Other specified diseases of gallbladder; N28.1 Cyst of kidney, acquired; I70.90 Unspecified atherosclerosis; N32.89 Other specified disorders of bladder; M43.16 Spondylolisthesis, lumbar region; Z53.9 Procedure and treatment not carried out, unspecified reason; R61 Generalized hyperhidrosis | CPT/HCPCS: 99214 ==

== ENCOUNTER 2025-07-01 11:45 | Oncology outpatient (recurring) (ONCR) | payer OTHER, SELFPAY ==
--- NOTE | 2025-06-25 10:00 | PETR_ITS ---
PROCEDURE INFORMATION: Exam: PET/CT Skull Base to Mid-thigh Exam date and time: 06/25/2025 10:36 AM Age: 79 years old Clinical indication: Condition or disease; Primary cancer: Cll; Additional info: Chronic lymphocytic leukemia LABS AND CLINICAL REPORTS: Glucose: 116 mg/dl Treatment strategy for malignancy (PET staging): Initial Staging (PI) TECHNIQUE: Imaging protocol: Following at least four-hour fasting and following the injection of radiopharmaceutical, low dose CT images were obtained. Then, PET images were obtained. Attenuation corrected images were constructed using the CT scan. Fused images of PET and CT were reviewed. The standardized uptake values (SUV) reported below are maximum values within a region of interest, expressed in gm/ml. Exam includes orbital meatal line to mid-thigh. SUV normalization method: BodyWeight Radiopharmaceutical: 11.46 mCi F-18 FDG (Fluorodeoxyglucose), IV. Time of imaging post radiopharmaceutical administration: 62 minutes Injection site: left ac COMPARISON: CT chest abdpel w/*[id number] 05/12/2025 1:49 PM FINDINGS: Brain: Visualized brain has normal physiologic uptake. Pharynx: No abnormal uptake. Larynx: No abnormal uptake. Lungs, pleura and trachea: No abnormal uptake. Dependent atelectasis and/or scarring. Heart: Normal physiologic uptake. Mediastinal space: No abnormal uptake. Diaphragm: Small hiatal hernia with associated FDG uptake. Liver: No abnormal uptake. Gallbladder and biliary ducts: No abnormal uptake. Pancreas: No abnormal uptake. Spleen: No abnormal uptake. No splenomegaly. Adrenal glands: No abnormal uptake. Kidneys and ureters: Normal physiologic uptake. Stomach and bowel: Long segment FDG uptake along the colon without underlying CT abnormality is likely benign physiologic or inflammatory. Reproductive: Prostatomegaly measures 5 cm in transverse dimension. No abnormal uptake. Vasculature: No abnormal uptake. [id number] systemic atherosclerotic calcification without aortic aneurysm. Lymph nodes: FDG-avid bilateral axillary lymphadenopathy with index left axillary node measuring 1.7 cm in the short axis on axial image 90 with SUV max 4.9. Lower level bilateral hilar FDG uptake without discretely measurable lymph node. FDG avid retroperitoneal and bilateral pelvic lymphadenopathy with index right external iliac node measuring 2 cm in the short axis on axial image 262 with SUV max 4.6 and index left external iliac node measuring 2.3 cm in the short axis on axial image 260 with SUV max 3.9. Mildly prominent non FDG avid mesenteric lymph nodes. Skeleton: No suspicious abnormal uptake in the visualized axial and appendicular skeleton. Degenerative change along the spine, shoulders and sacroiliac joints. Soft tissues: No abnormal uptake in the visualized head, neck, chest, abdomen, pelvis, and extremities. METRICS: Mediastinal blood pool: SUV mean 1.7 Liver uptake: SUV mean 2.1 PET/PET skull to thigh INIT [id number] IMPRESSION: 1. FDG avid lymphadenopathy most prominent at the axillary, retroperitoneal and bilateral pelvic regions compatible with reported CLL. 2. Small hiatal hernia with associated FDG uptake that is likely inflammatory. 3. Additional chronic and incidental findings as above.
[2025-07-01 12:11] LABS: Hematocrit 45.5 % (37-53); Hemoglobin 15.80 g/dL (11.27-16.99); Mean Corpuscular HGB Conc 34.7 g/dL (30-55); Mean Corpuscular Hemoglobin 31.7 pg (27-33); Mean Corpuscular Volume 91.4 fl (82-101); Platelet Count 222 10^3/cmm (157-399); Red Blood Count 4.98 10^6/uL (3.85-5.65); White Blood Count 15.90 10^3/uL (3.29-11.43)
[2025-07-01 12:26] LABS: Alanine Aminotransferase 17 U/L (0-41); Albumin Level 4.4 g/dL (3.5-5.2); Alkaline Phosphatase 91 U/L (40-130); Anion Gap 14.8 (5-19); Aspartate Amino Transferase 16 U/L (0-40); Blood Urea Nitrogen 23 mg/dL (8-23); Calcium 8.8 mg/dL (8.5-10.5); Carbon Dioxide 24 mmol/L (22-29); Chloride 106 mmol/L (98-107); Globulin 2.0 g/dL (1.3-4.6); Glucose 91 mg/dL (65-115); Osmolality Calculated 293 mOsm/kg (285-295); Potassium 4.8 mmol/L (3.5-5.1); Sodium 140 mmol/L (136-145); Total Protein 6.4 g/dL (6.6-8.7)
[2025-07-01 12:47] LABS: Absolute Segmented Neutrophil 4.9 10/cmm (1.6-7.1); Atypical Lymphs 54.0 % (0-5); Band Neutrophils Absolute 0.0 10^3/cmm (0.0-1.2); Total Cells Counted 100 (0-100)
[2025-07-02 09:00] LABS: PROTEIN, TOTAL 6.2 g/dL (6.1-8.1)
[2025-07-02 20:04] LABS: ALPHA 1 GLOBULIN 0.2 g/dL (0.2-0.3); ALPHA 2 GLOBULIN 0.7 g/dL (0.5-0.9); BETA 1 GLOBULIN 0.3 g/dL (0.4-0.6); BETA 2 GLOBULIN 0.3 g/dL (0.2-0.5)
== END 2025-07-14 23:59 | disposition home or self-care (01) ==
PROVIDERS: Internal Medicine; PCP Family Medicine; Visit Provider Internal Medicine Medical Oncology
DX: Z53.9 Procedure and treatment not carried out, unspecified reason; C91.10 Chronic lymphocytic leukemia of B-cell type not having achieved remission; Z87.891 Personal history of nicotine dependence; R61 Generalized hyperhidrosis; R42 Dizziness and giddiness; R53.83 Other fatigue; R52 Pain, unspecified
CPT/HCPCS: 36415; 78815; 80053; 82784; 83010; 83615; 84155; 84165; 85007; 85025; 85045; 85651; 86334; 99213; A9552